=== PATIENT | male | born 1990 | race Caucasian/White ===

== ENCOUNTER → 2016-10-19 | Outpatient (CLI) | payer BC ==
[2016-10-19 15:00] LABS: CHLORIDE,CL 106 mmol/L (98-110); SODIUM,NA 142 mmol/L (136-146)
== END ==
LOC: MW.CHFP 13:42
PROVIDERS: ATTEND Nurse Practitioner Family
DX: J45.990 Exercise induced bronchospasm (principal); Y93.84 Activity, sleeping; L91.8 Other hypertrophic disorders of the skin; D17.9 Benign lipomatous neoplasm, unspecified
CPT/HCPCS: 36415; 80053; 82652; 84443; 85027

== ENCOUNTER 2020-11-01 22:21 | Emergency (ER) | payer BC ==
--- NOTE | 2020-11-01 22:39 | EDM.PDOC ---
ED HPI GENERAL MEDICAL PROBLEM - General Chief Complaint: Fever Stated Complaint: COVID POSITIVE, HIGH FEVER Time Seen by Provider: 11/01/20 22:29 Source of Information: Reports: Patient History Limitations: Reports: No Limitations - History of Present Illness INITIAL COMMENTS - FREE TEXT/NARRATIVE: Patient is a 30-year-old male who presents today for fever. Patient was diagno sed with Covid today and called the hotline had a fever 103 and I told him to come be evaluated. Patient currently states he has body aches and fever but denies any cough shortness of breath nausea vomiting decreased p.o. intake. - Related Data Allergies Allergy/AdvReac Type Severity Reaction Status Date / Time No Known Allergies Allergy Verified 11/01/20 22:38 Home Meds: Home Meds . [No Known Home Meds] 11/01/20 [History] ED ROS GENERAL - Review of Systems Review Of Systems: See Below Constitutional: Reports: Fever HEENT: Reports: No Symptoms Respiratory: Reports: No Symptoms Cardiovascular: Reports: No Symptoms Endocrine: Reports: No Symptoms GI/Abdominal: Reports: No Symptoms : Reports: No Symptoms Musculoskeletal: Reports: No Symptoms Skin: Reports: No Symptoms Neurological: Reports: No Symptoms Psychiatric: Reports: No Symptoms Hematologic/Lymphatic: Reports: No Symptoms Immunologic: Reports: No Symptoms ED EXAM, GENERAL - Physical Exam Exam: See Below Exam Limited By: No Limitations General Appearance: Alert, WD/WN, Moderate Distress Respiratory/Chest: No Respiratory Distress, Lungs Clear, Normal Breath Sounds Cardiovascular: Normal Peripheral Pulses, Regular Rate, Rhythm GI/Abdominal: Normal Bowel Sounds, Soft, Non-Tender Extremities: Normal Inspection Neurological: Alert, Oriented, CN II-XII Intact, Normal Cognition Course - Vital Signs Last Recorded V/S: Last Vital Signs Temp 101 F H 11/01/20 22:38 Pulse 89 11/01/20 22:38 Resp 18 11/01/20 22:38 BP 123/68 11/01/20 22:38 Pulse Ox 97 11/01/20 22:38 - Orders/Labs/Meds Labs: Laboratory Tests 11/01/20 11/01/20 11/01/20 Range/Units 22:53 22:53 22:53 WBC 5.32 (4.0-11.0) K/uL RBC 5.03 (4.50-5.90) M/uL Hgb 15.4 (13.0-17.0) g/dL Hct 44.7 (38.0-50.0) % MCV 88.9 (80.0-98.0) fL MCH 30.6 (27.0-32.0) pg MCHC 34.5 (31.0-37.0) g/dL RDW Std Deviation 43.3 (28.0-62.0) fl RDW Coeff of Josiane 13 (11.0-15.0) % Plt Count 228 (150-400) K/uL MPV 9.50 (7.40-12.00) fL Neut % (Auto) 57.6 (48.0-80.0) % Lymph % (Auto) 25.4 (16.0-40.0) % Culberson % (Auto) 16.4 H (0.0-15.0) % Eos % (Auto) 0.2 (0.0-7.0) % Baso % (Auto) 0.4 (0.0-1.5) % Neut # (Auto) 3.1 (1.4-5.7) K/uL Lymph # (Auto) 1.4 (0.6-2.4) K/uL Culberson # (Auto) 0.9 H (0.0-0.8) K/uL Eos # (Auto) 0.0 (0.0-0.7) K/uL Baso # (Auto) 0.0 (0.0-0.1) K/uL Nucleated RBC % 0.0 /100WBC Nucleated RBCs # 0 K/uL Sodium 137 (136-148) mmol/L Potassium 3.6 (3.5-5.1) mmol/L Chloride 103 (98-107) mmol/L Carbon Dioxide 25.3 (21.0-32.0) mmol/L BUN 14 (7.0-18.0) mg/dL Creatinine 1.1 (0.8-1.3) mg/dL Est Cr Clr Drug Dosing 117.36 mL/min Estimated GFR (MDRD) > 60.0 ml/min Glucose 130 H (74-106) mg/dL Lactic Acid 0.9 (0.4-2.0) mmol/L Calcium 8.4 L (8.5-10.1) mg/dL - Re-Assessments/Exams Free Text/Narrative Re-Assessment/Exam: 11/01/20 23:37 Patient labs reviewed. Patient will be discharged home given precautions for Covid. Departure - Departure Time of Disposition: 23:37 Disposition: Home, Self-Care 01 Condition: Good Clinical Impression: Multiple persistent symptoms after COVID-19 - Discharge Information *PRESCRIPTION DRUG MONITORING PROGRAM REVIEWED*: Not Applicable *COPY OF PRESCRIPTION DRUG MONITORING REPORT IN PATIENT IFRAH: Not Applicable Instructions: COVID-19 Frequently Asked Questions Referrals: PCP,None [Primary Care Provider] - Forms: ED Department Discharge Additional Instructions: The following information is given to patients seen in the emergency department who are being discharged to home. This information is to outline your options for follow-up care. We provide all patients seen in our emergency department with a follow-up referral. The need for follow-up, as well as the timing and circumstances, are variable depending upon the specifics of your emergency department visit. If you don't have a primary care physician on staff, we will provide you with a referral. We always advise you to contact your personal physician following an emergency department visit to inform them of the circumstance of the visit and for follow-up with them and/or the need for any referrals to a consulting specialist. The emergency department will also refer you to a specialist when appropriate. This referral assures that you have the opportunity for follow-up care with a specialist. All of these measure are taken in an effort to provide you with optimal care, which includes your follow-up. Under all circumstances we always encourage you to contact your private physician who remains a resource for coordinating your care. When calling for follow-up care, please make the office aware that this follow-up is from your recent emergency room visit. If for any reason you are refused follow-up, please contact the [facility] Emergency Department at and asked to speak to the emergency department charge nurse. Please follow up with your primary care physician. If you do not have a primary care physician, see below: [facility] [address] [place] [phone] [facility] [address] [place] [id number] You were seen today for elevated fever. You have Covid and is like related to the fever. We did her labs and have no hypoxia elevated white count. Please take Tylenol Motrin as needed for the fever. If you have any shortness of breath or other concerning symptoms please return to the ED. Sepsis Event Note (ED) - Focused Exam Vital Signs: Vital Signs Temp Pulse Resp BP Pulse Ox 11/01/20 22:38 101 F H 89 18 123/68 97 - Assessment/Plan Plan: Patient 30-year-old male who presents today for fever Ativan test positive for Covid. Patient exam looks well. Patient symptoms likely related to Covid patient has no respiratory distress like to be discharged home.
[2020-11-01 23:18] LABS: BLOOD UREA NITROGEN,BUN 14 mg/dL (7.0-18.0); CARBON DIOXIDE,CO2 25.3 mmol/L (21.0-32.0); CHLORIDE,CL 103 mmol/L (98-107); GLUCOSE RANDOM 130 mg/dL (74-106); POTASSIUM,K 3.6 mmol/L (3.5-5.1); SODIUM,NA 137 mmol/L (136-148)
== END 2020-11-01 23:50 | disposition home or self-care (01) ==
LOC: MW.ED 22:21
DX: U07.1 COVID-19 (principal)
CPT/HCPCS: 36415; 80048; 83605; 85025; 99283

== ENCOUNTER 2021-09-02 08:30 | Day surgery (SDC) | payer BC ==
[~2021-09-02 08:30] MED LIST: Albuterol 0.083% 2.5 MG/3 ML Neb Soln NEB PRN; HYDROmorphone 1 MG/ML Syringe IVPUSH PRN; Lactated Ringers 1,000 ML IV SCH; Metoclopramide 10 MG/2 ML SDV IVPUSH PRN; Naloxone 0.4 MG/ML SDV IVPUSH PRN; Ondansetron 4 MG/2 ML SDV IVPUSH PRN; Propofol 200 MG/20 ML SDV ONE; Sodium Chloride 0.9% 10 ML Syringe FLUSH PRN; Sodium Chloride 0.9% 2.5 ML Syringe FLUSH PRN; Sodium Chloride 0.9% 20 ML SDV IV PRN; ceFAZolin 2 GM in Premix Bag 1 BAG IV ONE; fentaNYL 100 MCG/2 ML SDV IVPUSH PRN; fentaNYL 250 MCG/5 ML SDV ONE
[2021-09-02] MEDS ORDERED: Bupivacaine 0.5% 30 ML SDV ONE (09:28)
[2021-09-02] MEDS ORDERED: Octyl 2-Cyanoacrylate 1 Tube ONE ×3 (09:28→11:09)
[2021-09-02] MEDS ORDERED: Ketamine HCL/NACL, ISO-OSM 50 MG/5 ML Syringe ONE (09:55)
[2021-09-02] MEDS ORDERED: Midazolam 1 MG/ML 2 ML SDV ONE (09:55)
[2021-09-02] MEDS ORDERED: Famotidine 20 MG/2 ML SDV ONE (10:30)
[2021-09-02] MEDS ORDERED: Lidocaine 1% 20 ML MDV ONE (10:41)
[2021-09-02] MEDS ORDERED: Dexamethasone 4 MG/ML 5 ML MDV ONE (11:01)
[2021-09-02] MEDS ORDERED: Propofol 200 MG/20 ML SDV ONE (11:20)
[2021-09-02] MEDS ORDERED: ePHEDrine 50 MG/ML SDV ONE (11:22)
[2021-09-02] MEDS ORDERED: Ondansetron 4 MG/2 ML SDV ONE (11:22)
== END 2021-09-02 12:40 | disposition home or self-care (01) ==
LOC: MW.SDS 08:30
PROVIDERS: ATTEND Surgery
DX: D17.1 Benign lipomatous neoplasm of skin and subcutaneous tissue of trunk (principal); D17.24 Benign lipomatous neoplasm of skin and subcutaneous tissue of left leg; Z79.899 Other long term (current) drug therapy
CPT/HCPCS: 21555; 27327; 27337; A9270; J0131; J0690; J1100; J2250; J2405; J2704; J3010; J3490; J7120; 00400